=== PATIENT | female | born 1985 | race Two or more races ===

== ENCOUNTER 2021-10-21 08:53 | Inpatient (IN) | payer SELFPAY ==
[~2021-10-21] VITALS: Ht 157.5 cm; Wt 57.2 kg
[2021-10-21] MEDS ORDERED: IV NORMAL SALINE 1000ML BAG 1,000 ML IV SCH (11:00)
[2021-10-21] MEDS ORDERED: FAMOTIDINE 20 MG/2 ML VIAL IVP ONE (11:00)
[2021-10-21] MEDS ORDERED: ONDANSETRON PF 4 MG/2 ML VIAL. IVP ONE (11:00)
[2021-10-21] MEDS ORDERED: fentaNYL PF VIAL 100 MCG/2 ML VIAL IVP ONE (11:00)
--- NOTE | 2021-10-21 11:03 | PHYS DOC ---
General Adult EDM: Chief Complaint: ABDOMINAL PAIN HPI: HPI: Patient is a 36 year old female who presents with 1:00 this morning she been having left-sided sharp/cramping abdominal pain that goes to the left side almost to the flank area at times. She states yesterday morning she had 1 bout of diarrhea but none since. She rates her pain a 10 out of 10. She has a history of RA which she takes prednisone and [id number] Artrivida. She rates her pain at 10 out of 10. She denies vomiting, constipation, chest pain, shortness of air, fever, cough, urinary symptoms, abnormal vaginal discharge, numbness or tingling, headache, dizziness. Review of Systems: Review of Systems: Constitutional: Denies fever or chills. [] Eyes: Denies change in visual acuity. [] HENT: Denies nasal congestion or sore throat. [] Respiratory: Denies cough or shortness of breath. [] Cardiovascular: Denies chest pain or edema. [] GI: + abdominal pain, +nausea, denies vomiting, bloody stools or +diarrhea x1 yesterday. [] : Denies dysuria. [] Musculoskeletal: + left side back pain or denies joint pain. [] Integument: Denies rash. [] Neurologic: Denies headache, focal weakness or sensory changes. [] Endocrine: Denies polyuria or polydipsia. [] Lymphatic: Denies swollen glands. [] Psychiatric: Denies depression or anxiety. [] Heart Score: C/O Chest Pain: No Allergies: Allergies: Allergies Coded Allergies Type Severity Reaction Last Updated Verified No Known Drug Allergies 10/21/21 No Physical Exam: PE: Constitutional: Well developed, well nourished, no acute distress, non-toxic appearance. [] HENT: Normocephalic, atraumatic, bilateral external ears normal, oropharynx moist, no oral exudates, nose normal. [] Eyes: PERRLA, EOMI, conjunctiva normal, no discharge. [] Neck: Normal range of motion, no tenderness, supple, no stridor. [] Cardiovascular:Heart rate regular rhythm, no murmur [] Lungs & Thorax: Bilateral breath sounds clear to auscultation [] Abdomen: Bowel sounds normal, soft, mid lower, left mid and lower tenderness, no masses, no pulsatile masses. [] Skin: Warm, dry, no erythema, no rash. [] Back: No tenderness, no CVA tenderness. [] Extremities: No tenderness, no cyanosis, no clubbing, ROM intact, no edema. [] Neurologic: Alert and oriented X 3, normal motor function, normal sensory function, no focal deficits noted. [] Psychologic: Affect normal, judgement normal, mood normal. [] Current Patient Data: Labs: Laboratory Tests Test 10/21/21 10:37 POC Urine HCG, Qualitative Hcg negative (Negative) EKG: EKG: [] Radiology/Procedures: Radiology/Procedures: [] Impression: [facility] [address] [place] [address] IMAGING REPORT Signed PATIENT: JOE GROSSMAN ACCOUNT: [id number] : 1985 LOCATION: ER AGE: 36 SEX: F EXAM STATUS: REG ER ORD. PHYSICIAN: KATHERINE GODINEZ APRN REASON: left abdominal pain, nausea, left flank PROCEDURE: CT ABD PELV W/ IV CONTRST ONLY EXAMINATION: CT ABDOMEN+PELVIS W CLINICAL HISTORY: Left abdominal pain, nausea, left flank TECHNIQUE: CT of the abdomen and pelvis was performed using standard technique, scanning from just above the dome of the diaphragm to the symphysis pubis following administration of intravenous contrast. CT Dose Reduction Employed: One or more of the following individualized dose reduction techniques were utilized for this examination: 1. Automated exposure control 2. Adjustment of the mA and/or kV according to patient size 3. Use of iterative reconstruction technique. COMPARISON: None FINDINGS: Minimal dependent subsegmental atelectasis in the left lung base. Moderately distended gallbladder with a few small gallstones and rim of hypoattenuation surrounding the gallbladder, suspicious for cholecystitis. Probable focal hepatic steatosis along the falciform ligament. Pancreas, spleen, and adrenal glands unremarkable. Moderate proximal left hydroureteronephrosis, possibly related to a crossing vessel. No urolithiasis. Subcentimeter hypoenhancing focus in the mid to upper pole of left kidney, too small adequately characterize but likely a cyst. Right kidney unremarkable. Minimally filled urinary bladder suboptimally evaluated. Uterus unremarkable. Dominant right ovarian follicle. Left ovary unremarkable. No bowel dilation or definite wall thickening. Partially visualized appendix appears normal. No abdominal aortic or iliac artery aneurysm. Transitional lumbosacral vertebra with sacralization of L5. IMPRESSION: Moderately distended gallbladder with cholelithiasis and suspected pericholecystic edema, suspicious for cholecystitis. Recommend clinical correlation and right upper quadrant ultrasound as indicated. Moderate proximal left hydroureteronephrosis, possibly related to a crossing vessel. No urolithiasis. Electronically signed by: Héctor Serna DO (10/21/2021 12:23 PM) [facility] DICTATED and SIGNED BY: HÉCTOR SERNA DO DATE: 10/21/[id number] [facility] [address] [place] [address] IMAGING REPORT Signed PATIENT: JOE GROSSMAN ACCOUNT: [id number] : 1985 LOCATION: ER AGE: 36 SEX: F EXAM STATUS: REG ER ORD. PHYSICIAN: KATHERINE GODINEZ APRN REASON: GALL BLADDER ABNORMAL ON CT - TECH NOTIFIED PROCEDURE: ABDOMEN LTD EXAMINATION: US ABDOMEN LIMITED INDICATION: 36 years, Female, gallbladder abnormal with CT. COMPARISON: Same day CT abdomen and pelvis TECHNIQUE: Grayscale, color Doppler and limited spectral Doppler images of the right upper quadrant were obtained. FINDINGS: LIVER: SIZE (LENGTH): 12.6 cm. ECHOGENICITY: Normal. PARENCHYMA: Homogeneous echotexture. No discrete focal lesion. INTRAHEPATIC BILE DUCTS: Nondilated. PORTAL VEIN: Patent with normal hepatopedal flow. GALLBLADDER: GALLBLADDER WALL THICKNESS: 5.4 mm. MORPHOLOGY: Mild gallbladder hydrops. No pericholecystic free fluid. LUMEN: Multiple cholelithiasis with biliary sludge; one of them locates in the gallbladder neck measures 1.6 cm. COMMON BILE DUCT DIAMETER: 1.8 mm. RIGHT KIDNEY: MEASURES: 11.6 cm in length. MORPHOLOGY/PARENCHYMA: Normal corticomedullary differentiation with no shadowing calculus or discrete masses. COLLECTING SYSTEM: No hydronephrosis. PANCREAS: VISUALIZED PORTIONS: Entire. APPEARANCE: Within normal limits. OTHER: RETROPERITONEUM, INFERIOR VENA CAVA: Normal caliber. AORTA: Normal caliber. FLUID:No free fluid. IMPRESSION: Mild gallbladder hydrops with diffuse wall thickening and submucosal edema. Cholelithiases with biliary sludge; one of them locates within the gallbladder neck. Findings suspicious for acute cholecystitis. Electronically signed by: Aylin Shah MD (10/21/2021 3:02 PM) [id number] DICTATED and SIGNED BY: AYLIN SHAH MD DATE: 10/21/21 [id number] Course & Med Decision Making: Course & Med Decision Making Pertinent Labs and Imaging studies reviewed. (See chart for details) See HPI. Alert and oriented x4. Ambulatory steady gait. Speaks in full clear sentences. Abdomen is soft but there is left mid, lower quadrant and mid lower quadrant abdominal tenderness. Skin pink warm and dry. No CVA tenderness. Vital signs are within normal limits. CT is showing cholecystitis. I have ordered an ultrasound. I spoke with Dr. Holley who states to hydrate the patient today and give her Zosyn. He states surgery tomorrow. Patient admitted to hospitalist. [] Mira Disclaimer: Mira Disclaimer: This electronic medical record was generated, in whole or in part, using a voice recognition dictation system. Departure Departure Impression: Primary Impression: Cholecystitis Disposition: ADMITTED INPATIENT Admitting Physician: ROB Condition: STABLE Referrals: NO PCP (PCP) KATHERINE GODINEZ APRN Oct 21, 2021 11:03
[2021-10-21 11:17] LABS: BILIRUBIN,URINE NEGATIVE (NEG); CLARITY,URINE CLEAR; COLOR,URINE YELLOW; NITRITE,URINE NEGATIVE (NEG); PH,URINE 7.5 (<5.0-8.0); PROTEIN,URINE NEGATIVE (NEG-TRACE); UROBILINOGEN,URINE 0.2 mg/dL (0.2 mg/dL)
[2021-10-21 11:19] LABS: BASO % 0 % (0-3); EOS % 0 % (0-3); HEMATOCRIT 37.1 % (36.0-47.0); HEMOGLOBIN 11.9 g/dL (12.0-15.5); LYMPH % 10 % (24-48); MEAN CORPUSCULAR HEMOGLOBIN 27 pg (25-35); MEAN CORPUSCULAR HGB CONC 32 g/dL (31-37); MEAN CORPUSCULAR VOLUME 84 fL (79-100); MONO # 0.4 x10^3/uL (0.0-1.1); MONO % 4 % (0-9); NEUT # 8.8 x10^3/uL (1.8-7.7); NEUT % 86 % (31-73); PLATELET COUNT 300 x10^3/uL (140-400); RED BLOOD COUNT 4.43 x10^6/uL (3.50-5.40); RED CELL DISTRIBUTION WIDTH 14.8 % (11.5-14.5); WHITE BLOOD COUNT 10.2 x10^3/uL (4.0-11.0)
[2021-10-21 11:24] LABS: AMPHETAMINE/METHAMPHETAMINE NEG (NEG); BARBITURATES NEG (NEG); BENZODIAZEPINES NEG (NEG); CANNABINOIDS POS (NEG); COCAINE NEG (NEG); METHADONE NEG (NEG); OPIATES NEG (NEG); PHENCYCLIDINE NEG (NEG)
[2021-10-21 11:32] LABS: CALCIUM 8.7 mg/dL (8.5-10.1); CREATININE 0.5 mg/dL (0.6-1.0); GFR 139.6; POTASSIUM 3.8 mmol/L (3.5-5.1)
[2021-10-21 11:34] LABS: ALBUMIN 3.1 g/dL (3.4-5.0); ALBUMIN/GLOBULIN RATIO 0.7 (1.0-1.7); TOTAL BILIRUBIN 0.4 mg/dL (0.2-1.0); TOTAL PROTEIN 7.3 g/dL (6.4-8.2)
[2021-10-21] MEDS ORDERED: IOHEXOL 300 MG/ML 100ML VIAL. IV ONE (12:00)
[2021-10-21] MEDS ORDERED: CONTRAST GIVEN. MC PRN (12:00)
[2021-10-21 12:09] LABS: BACTERIA,URINE 0 /HPF (0-FEW); RBC,URINE 0 /HPF (0-2); WBC,URINE 0 /HPF (0-4)
--- NOTE | 2021-10-21 12:25 | RAD ---
EXAMINATION: CT ABDOMEN+PELVIS W CLINICAL HISTORY: Left abdominal pain, nausea, left flank TECHNIQUE: CT of the abdomen and pelvis was performed using standard technique, scanning from just ab ove the dome of the diaphragm to the symphysis pubis following administration of intravenous contrast . CT Dose Reduction Employed: One or more of the following individualized dose reduction techniques wer e utilized for this examination: 1. Automated exposure control 2. Adjustment of the mA and/or kV ac cording to patient size 3. Use of iterative reconstruction technique. COMPARISON: None FINDINGS: Minimal dependent subsegmental atelectasis in the left lung base. Moderately distended gallbladder with a few small gallstones and rim of hypoattenuation surrounding t he gallbladder, suspicious for cholecystitis. Probable focal hepatic steatosis along the falciform li gament. Pancreas, spleen, and adrenal glands unremarkable. Moderate proximal left hydroureteronephrosis, possibly related to a crossing vessel. No urolithiasis. Subcentimeter hypoenhancing focus in the mid to upper pole of left kidney, too small adequately cristine acterize but likely a cyst. Right kidney unremarkable. Minimally filled urinary bladder suboptimally evaluated. Uterus unremarkable. Dominant right ovarian follicle. Left ovary unremarkable. No bowel dilation or definite wall thickening. Partially visualized appendix appears normal. No abdominal aortic or iliac artery aneurysm. Transitional lumbosacral vertebra with sacralization of L5. IMPRESSION: Moderately distended gallbladder with cholelithiasis and suspected pericholecystic edema, suspicious for cholecystitis. Recommend clinical correlation and right upper quadrant ultrasound as indicated. Moderate proximal left hydroureteronephrosis, possibly related to a crossing vessel. No urolithiasis. Electronically signed by: Héctor Thomas DO (10/21/2021 12:23 PM) SHAUN
[2021-10-21] MEDS ORDERED: IV NORMAL SALINE 1000ML BAG 1,000 ML IV ONE (13:30)
[2021-10-21] MEDS ORDERED: PIPERACILLIN/TAZOBACTAM 3.375 GM in IV NORMAL SALINE 50ML 50 ML IV ONE (13:30)
[2021-10-21] MEDS ORDERED: ONDANSETRON PF 4 MG/2 ML VIAL. IVP PRN (13:30)
[2021-10-21] MEDS: IV NORMAL SALINE 1000ML BAG 1,000 ML IV SCH (13:30)
[2021-10-21] MEDS ORDERED: CALCIUM CARBONATE 500 MG TAB.CHEW PO PRN (13:45)
[2021-10-21] MEDS ORDERED: MORPHINE SULFATE 2 MG/ML INJ. IV PRN ×2 (13:45)
[2021-10-21] MEDS ORDERED: PROCHLORPERAZINE 10 MG/2 ML VIAL. IVP PRN (13:45)
[2021-10-21] MEDS ORDERED: oxyCODONE IR 5 MG TABLET PO PRN (13:45)
[2021-10-21] MEDS ORDERED: ZOLPIDEM 5 MG TABLET. PO PRN (13:45)
[2021-10-21] MEDS ORDERED: ELECTROLYTE (NON-ICU) PROTOCOL. MC PRN (13:45)
[2021-10-21] MEDS ORDERED: ACETAMINOPHEN 325 MG TABLET. PO PRN (13:45)
--- NOTE | 2021-10-21 14:11 | PDOC1 ---
History and Physical Date of Service: DOS: DATE: 10/21/21 TIME: 14:07 Chief Complaint: Chief Complain: Abdominal pain History of Present Illness: HPI: Patient is a 36 year old female who presented to the emergency room this morning due to right-sided sharp/cramping abdominal pain which radiaties to the flank area at times. She states yesterday morning she had 1 bout of diarrhea but none since. She rates her pain a 10 out of 10. She has a history of RA which she takes prednisone and [id number] Artrivida. She rates her pain at 10 out of 10. She denies vomiting, constipation, chest pain, shortness of air, fever, cough, urinary symptoms, abnormal vaginal discharge, numbness or tingling, headache, dizziness. In the emergency room CT concerning for cholecystitis. Surgery consulted patient admitted to hospitalist Past Medical/Surgical History: PMH/PSH: RA Allergies: Allergies: Coded Allergies: No Known Drug Allergies (Unverified , 10/21/21) Family History: Family History: Reviewed with patient none known Social History: Social History: Denies alcohol tobacco drug use Current Medications: Current Medications Current Medications Sodium Chloride 1,000 ml @ 1,000 mls/hr Q1H IV Last administered on 10/21/21at 11:49; Start 10/21/21 at 11:00; Stop 10/21/21 at 11:59; Status DC Fentanyl Citrate (Fentanyl 2ml Vial) 50 mcg 1X ONCE IVP Last administered on 10/21/21at 11:50; Start 10/21/21 at 11:00; Stop 10/21/21 at 11:01; Status DC Ondansetron HCl (Zofran) 4 mg 1X ONCE IVP Last administered on 10/21/21at 11:49; Start 10/21/21 at 11:00; Stop 10/21/21 at 11:01; Status DC Famotidine (Pepcid Vial) 20 mg 1X ONCE IVP Last administered on 10/21/21at 11:49; Start 10/21/21 at 11:00; Stop 10/21/21 at 11:01; Status DC Iohexol (Omnipaque 300 Mg/ml) 75 ml 1X ONCE IV Last administered on 10/21/21at 12:04; Start 10/21/21 at 12:00; Stop 10/21/21 at 12:01; Status DC Info (CONTRAST GIVEN -- Rx MONITORING) 1 each PRN DAILY PRN MC SEE COMMENTS; Start 10/21/21 at 12:00; Stop 10/23/21 at 11:59 Piperacillin Sod/ Tazobactam Sod 3.375 gm/Sodium Chloride 50 ml @ 100 mls/hr 1X ONCE IV ; Start 10/21/21 at 13:30; Stop 10/21/21 at 13:59; Status DC Sodium Chloride 1,000 ml @ 1,000 mls/hr 1X ONCE IV ; Start 10/21/21 at 13:30; Stop 10/21/21 at 14:29 Ondansetron HCl (Zofran) 4 mg PRN Q8HRS PRN IVP NAUSEA/VOMITING; Start 10/21/21 at 13:30; Stop 10/22/21 at 13:29 Sodium Chloride 1,000 ml @ 75 mls/hr [id number] IV ; Start 10/21/21 at 13:30; Stop 10/22/21 at 13:29 Ondansetron HCl (Zofran) 4 mg PRN Q6HRS PRN IVP NAUSEA/VOMITING; Start 10/21/21 at 13:45 Prochlorperazine Edisylate (Compazine) 10 mg PRN Q6HRS PRN IVP NAUSEA/VOMITING- 2ND CHOICE; Start 10/21/21 at 13:45 Calcium Carbonate/ Glycine (Tums) 500 mg PRN Q3HRS PRN PO UPSET STOMACH; Start 10/21/21 at 13:45 Zolpidem Tartrate (Ambien) 5 mg PRN QHS PRN PO INSOMNIA, MAY REPEAT IN 1HR; Start 10/21/21 at 13:45 Info (Non-Icu Electrolyte Protocol) 1 ea PRN DAILY PRN MC SEE COMMENTS; Start 10/21/21 at 13:45 Oxycodone HCl (Roxicodone) 5 mg PRN Q3HRS PRN PO PAIN; Start 10/21/21 at 13:45 Morphine Sulfate (Morphine Sulfate) 1 mg PRN Q1HR PRN IV MODERATE PAIN; Start 10/21/21 at 13:45 Morphine Sulfate (Morphine Sulfate) 2 mg PRN Q1HR PRN IV SEVERE PAIN; Start 10/21/21 at 13:45 Acetaminophen (Tylenol) 650 mg PRN Q6HRS PRN PO Headaches, Temp > 101.5F; Start 10/21/21 at 13:45 Senna/Docusate Sodium (Senna Plus) 1 tab BID PO ; Start 10/21/21 at 21:00 ROS: Review of Systems Review of System Unless noted in HPI 14 point review systems was negative Physical Exam: Vital Signs: Vital Signs Date Time Temp Pulse Resp B/P (MAP) Pulse Ox O2 Delivery O2 Flow Rate FiO2 10/21/21 11:50 17 100 Room Air 10/21/21 10:30 98.0 53 149/99 (116) 98.0 Physcial Exam: GEN: No apparent distress. Alert and oriented HEENT: Normal cephalic, atraumatic, external auditory canals are patent EYES: Extraocular muscles are intact, pupil are equally round and reactive to light and accommodation MUSCULOSKELETAL: Well developed , well nourished, good range of motion ENDOCRINE: No thyromegaly was palpated LYMPHATICS: No cervical chain or axillary nodes were noted HEMATOPOIETIC: No bruising NECK: Supple, no JVD, no thyromegaly was noted LUNGS: Clear to auscultation in all lung temple without rhonchi or wheezing HEART: RRR, S1, S2 present. Peripheral pulses intact, no obvious murmurs noted ABDOMEN: Diffusely tender with mild palpation s EXTREMITIES: Without clubbing, cyanosis, or edema. Pedal pulses intact. Negative Homans sign NEUROLOGIC: Normal speech and tone. A&O x 3, moves all extremities, no obvious focal deficits PSYCHIATRIC: Normal affect, normal mood. Stable SKIN: No ulcerations or rashes, good skin turgor, no jaundice VASCULAR: Good capillary refill, neurovascular bundle appears to be intact Labs: Labs: Laboratory Tests Test 10/21/21 10:33 10/21/21 10:37 10/21/21 11:09 Urine Collection Type Unknown Urine Color Yellow Urine Clarity Clear Urine pH 7.5 (<5.0-8.0) Urine Specific [place] 1.020 (1.000-1.030) Urine Protein Negative mg/dL (NEG-TRACE) Urine Glucose (UA) Negative mg/dL (NEG) Urine Ketones (Stick) 40 mg/dL (NEG) Urine Blood Negative (NEG) Urine Nitrite Negative (NEG) Urine Bilirubin Negative (NEG) Urine Urobilinogen Dipstick 0.2 mg/dL (0.2 mg/dL) Urine Leukocyte Esterase Negative (NEG) Urine RBC 0 /HPF (0-2) Urine WBC 0 /HPF (0-4) Urine Squamous Epithelial Cells Occ /LPF Urine Bacteria 0 /HPF (0-FEW) Urine Opiates Screen Neg (NEG) Urine Methadone Screen Neg (NEG) Urine Barbiturates Neg (NEG) Urine Phencyclidine Screen Neg (NEG) Urine Amphetamine/Methamphetamine Neg (NEG) Urine Benzodiazepines Screen Neg (NEG) Urine Cocaine Screen Neg (NEG) Urine Cannabinoids Screen Pos (NEG) Urine Ethyl Alcohol Neg (NEG) Bedside Urine HCG, Qualitative Hcg negative (Negative) White Blood Count 10.2 x10^3/uL (4.0-11.0) Red Blood Count 4.43 x10^6/uL (3.50-5.40) Hemoglobin 11.9 g/dL (12.0-15.5) Hematocrit 37.1 % (36.0-47.0) Mean Corpuscular Volume 84 fL (79-100) Mean Corpuscular Hemoglobin 27 pg (25-35) Mean Corpuscular Hemoglobin Concent 32 g/dL (31-37) Red Cell Distribution Width 14.8 % (11.5-14.5) Platelet Count 300 x10^3/uL (140-400) Neutrophils (%) (Auto) 86 % (31-73) Lymphocytes (%) (Auto) 10 % (24-48) Monocytes (%) (Auto) 4 % (0-9) Eosinophils (%) (Auto) 0 % (0-3) Basophils (%) (Auto) 0 % (0-3) Neutrophils # (Auto) 8.8 x10^3/uL (1.8-7.7) Lymphocytes # (Auto) 1.0 x10^3/uL (1.0-4.8) Monocytes # (Auto) 0.4 x10^3/uL (0.0-1.1) Eosinophils # (Auto) 0.0 x10^3/uL (0.0-0.7) Basophils # (Auto) 0.0 x10^3/uL (0.0-0.2) Sodium Level 137 mmol/L (136-145) Potassium Level 3.8 mmol/L (3.5-5.1) Chloride Level 102 mmol/L (98-107) Carbon Dioxide Level 26 mmol/L (21-32) Anion Gap 9 (6-14) Blood Urea Nitrogen 23 mg/dL (7-20) Creatinine 0.5 mg/dL (0.6-1.0) Estimated GFR (Cockcroft-Gault) 139.6 BUN/Creatinine Ratio 46 (6-20) Glucose Level 119 mg/dL (70-99) Calcium Level 8.7 mg/dL (8.5-10.1) Total Bilirubin 0.4 mg/dL (0.2-1.0) Aspartate Amino Transf (AST/SGOT) 36 U/L (15-37) Alanine Aminotransferase (ALT/SGPT) 46 U/L (14-59) Alkaline Phosphatase 81 U/L (46-116) Total Protein 7.3 g/dL (6.4-8.2) Albumin 3.1 g/dL (3.4-5.0) Albumin/Globulin Ratio 0.7 (1.0-1.7) Lipase 93 U/L (73-393) Laboratory Tests Test 10/21/21 10:33 10/21/21 10:37 10/21/21 11:09 Urine Collection Type Unknown Urine Color Yellow Urine Clarity Clear Urine pH 7.5 (<5.0-8.0) Urine Specific [place] 1.020 (1.000-1.030) Urine Protein Negative mg/dL (NEG-TRACE) Urine Glucose (UA) Negative mg/dL (NEG) Urine Ketones (Stick) 40 mg/dL (NEG) Urine Blood Negative (NEG) Urine Nitrite Negative (NEG) Urine Bilirubin Negative (NEG) Urine Urobilinogen Dipstick 0.2 mg/dL (0.2 mg/dL) Urine Leukocyte Esterase Negative (NEG) Urine RBC 0 /HPF (0-2) Urine WBC 0 /HPF (0-4) Urine Squamous Epithelial Cells Occ /LPF Urine Bacteria 0 /HPF (0-FEW) Urine Opiates Screen Neg (NEG) Urine Methadone Screen Neg (NEG) Urine Barbiturates Neg (NEG) Urine Phencyclidine Screen Neg (NEG) Urine Amphetamine/Methamphetamine Neg (NEG) Urine Benzodiazepines Screen Neg (NEG) Urine Cocaine Screen Neg (NEG) Urine Cannabinoids Screen Pos (NEG) Urine Ethyl Alcohol Neg (NEG) Bedside Urine HCG, Qualitative Hcg negative (Negative) White Blood Count 10.2 x10^3/uL (4.0-11.0) Red Blood Count 4.43 x10^6/uL (3.50-5.40) Hemoglobin 11.9 g/dL (12.0-15.5) Hematocrit 37.1 % (36.0-47.0) Mean Corpuscular Volume 84 fL (79-100) Mean Corpuscular Hemoglobin 27 pg (25-35) Mean Corpuscular Hemoglobin Concent 32 g/dL (31-37) Red Cell Distribution Width 14.8 % (11.5-14.5) Platelet Count 300 x10^3/uL (140-400) Neutrophils (%) (Auto) 86 % (31-73) Lymphocytes (%) (Auto) 10 % (24-48) Monocytes (%) (Auto) 4 % (0-9) Eosinophils (%) (Auto) 0 % (0-3) Basophils (%) (Auto) 0 % (0-3) Neutrophils # (Auto) 8.8 x10^3/uL (1.8-7.7) Lymphocytes # (Auto) 1.0 x10^3/uL (1.0-4.8) Monocytes # (Auto) 0.4 x10^3/uL (0.0-1.1) Eosinophils # (Auto) 0.0 x10^3/uL (0.0-0.7) Basophils # (Auto) 0.0 x10^3/uL (0.0-0.2) Sodium Level 137 mmol/L (136-145) Potassium Level 3.8 mmol/L (3.5-5.1) Chloride Level 102 mmol/L (98-107) Carbon Dioxide Level 26 mmol/L (21-32) Anion Gap 9 (6-14) Blood Urea Nitrogen 23 mg/dL (7-20) Creatinine 0.5 mg/dL (0.6-1.0) Estimated GFR (Cockcroft-Gault) 139.6 BUN/Creatinine Ratio 46 (6-20) Glucose Level 119 mg/dL (70-99) Calcium Level 8.7 mg/dL (8.5-10.1) Total Bilirubin 0.4 mg/dL (0.2-1.0) Aspartate Amino Transf (AST/SGOT) 36 U/L (15-37) Alanine Aminotransferase (ALT/SGPT) 46 U/L (14-59) Alkaline Phosphatase 81 U/L (46-116) Total Protein 7.3 g/dL (6.4-8.2) Albumin 3.1 g/dL (3.4-5.0) Albumin/Globulin Ratio 0.7 (1.0-1.7) Lipase 93 U/L (73-393) Assessment/Plan Assessment/Plan Acute cholecystitis. History of RA -Patient with 1 day history abdominal pain -Presented to emergency room and have cholecystitis on imaging -Surgery consulted for possible surgery tomorrow. -Received 1 dose of Zosyn in the emergency room. No leukocytosis or fever will hold off unless surgery prefers to restart -Hold off DVT prophylaxis in event of surgery tomorrow -N.p.o. midnight -Home meds resumed as indicated Justifications for Admission Other Justification BOO DORSEY MD Oct 21, 2021 14:11
--- NOTE | 2021-10-21 15:04 | RAD ---
EXAMINATION: US ABDOMEN LIMITED INDICATION: 36 years, Female, gallbladder abnormal with CT. COMPARISON: Same day CT abdomen and pelvis TECHNIQUE: Grayscale, color Doppler and limited spectral Doppler images of the right upper quadrant w ere obtained. FINDINGS: LIVER: SIZE (LENGTH): 12.6 cm. ECHOGENICITY: Normal. PARENCHYMA: Homogeneous echotexture. No discrete focal lesion. INTRAHEPATIC BILE DUCTS: Nondilated. PORTAL VEIN: Patent with normal hepatopedal flow. GALLBLADDER: GALLBLADDER WALL THICKNESS: 5.4 mm. MORPHOLOGY: Mild gallbladder hydrops. No pericholecystic free fluid. LUMEN: Multiple cholelithiasis with biliary sludge; one of them locates in the gallbladder neck measu res 1.6 cm. COMMON BILE DUCT DIAMETER: 1.8 mm. RIGHT KIDNEY: MEASURES: 11.6 cm in length. MORPHOLOGY/PARENCHYMA: Normal corticomedullary differentiation with no shadowing calculus or discrete masses. COLLECTING SYSTEM: No hydronephrosis. PANCREAS: VISUALIZED PORTIONS: Entire. APPEARANCE: Within normal limits. OTHER: RETROPERITONEUM, INFERIOR VENA CAVA: Normal caliber. AORTA: Normal caliber. FLUID:No free fluid. IMPRESSION: Mild gallbladder hydrops with diffuse wall thickening and submucosal edema. Cholelithiases with bilia ry sludge; one of them locates within the gallbladder neck. Findings suspicious for acute cholecystit is. Electronically signed by: Nathaly Shah MD (10/21/2021 3:02 PM) [place] [id number]
[2021-10-21 16:54] VITALS: BP 131/72
--- NOTE | 2021-10-21 18:14 | NUR ---
Pt arrived to floor at 1530 by w/c with by her side
[2021-10-21 19:00] VITALS: BP 137/79
[2021-10-21] MEDS: SENNOSIDES/DOCUSATE 8.6/50MG TABLET. PO SCH (21:29)
[2021-10-21 23:00] VITALS: BP 120/72
[2021-10-22] VITALS (12 sets, daily range): BP systolic 104–121; BP diastolic 51–76
[2021-10-22] MEDS: IV NORMAL SALINE 1000ML BAG 1,000 ML IV SCH (05:41)
[2021-10-22] MEDS: ONDANSETRON PF 4 MG/2 ML VIAL. IVP PRN ×2 (08:37→17:38)
[2021-10-22] MEDS: SENNOSIDES/DOCUSATE 8.6/50MG TABLET. PO SCH ×2 (08:41→20:46)
--- NOTE | 2021-10-22 10:20 | NUR ---
SW following. Discussed with RN, pt from home with family, room air, NPO, ad yobany. Pt having surgery today. Med Assist following for self pay status. SW will continue to follow.
[2021-10-22] MEDS ORDERED: SURGICEL HEMOSTAT 4X8 EACH. ONE (10:21)
[2021-10-22] MEDS ORDERED: IOHEXOL 300 MG/ML 50 ML VIAL. ONE (10:21)
[2021-10-22] MEDS ORDERED: BUPIVACAINE-EPI 0.5% 30 ML VIAL KIT. ONE (10:21)
--- NOTE | 2021-10-22 10:40 | PDOC ---
[facility] PROGRESS NOTE Date of Service DOS: DATE: 10/22/21 TIME: 10:39 Chief Complaint Chief Complaint Acute cholecystitis. History of RA -Patient with 1 day history abdominal pain -Presented to emergency room and have cholecystitis on imaging -Surgery consulted for possible surgery tomorrow. -Received 1 dose of Zosyn in the emergency room. No leukocytosis or fever will hold off unless surgery prefers to restart -Hold off DVT prophylaxis in event of surgery tomorrow -N.p.o. midnight -Home meds resumed as indicated History of Present Illness History of Present Illness 36 year old female who presented to the emergency room this morning due to right-sided sharp/cramping abdominal pain which radiaties to the flank area at times. She states yesterday morning she had 1 bout of diarrhea but none since. She rates her pain a 10 out of 10. She has a history of RA which she takes prednisone and kgqj-kpv-szobzlo Artrivida. She rates her pain at 10 out of 10. She denies vomiting, constipation, chest pain, shortness of air, fever, cough, urinary symptoms, abnormal vaginal discharge, numbness or tingling, headache, dizziness. In the emergency room CT concerning for cholecystitis. Surgery consulted patient admitted to hospitalist 10/22/2021 No acute events overnight. Patient seen and examined bedside. Pain is well controlled. On-call to the OR for lap serina. Patient's chart, labs, images were reviewed and discussed with RN Vitals/I&O Vitals/I&O: Vital Signs Date Time Temp Pulse Resp B/P (MAP) Pulse Ox O2 Delivery O2 Flow Rate FiO2 10/22/21 07:00 98.0 53 16 104/55 (71) 97 Room Air 98.0 I & O 10/21/21 10/21/21 10/22/21 15:00 23:00 07:00 Intake Total 1000 ml 1170 ml Balance 1000 ml 1170 ml Physical Exam General: Alert, Oriented X3, Cooperative Heart: Regular rate Lungs: Clear Abdomen: Normal bowel sounds Extremities: No clubbing Skin: No rashes, No significant lesion Labs Labs: Laboratory Tests Test 10/21/21 11:09 White Blood Count 10.2 x10^3/uL (4.0-11.0) Red Blood Count 4.43 x10^6/uL (3.50-5.40) Hemoglobin 11.9 g/dL (12.0-15.5) Hematocrit 37.1 % (36.0-47.0) Mean Corpuscular Volume 84 fL (79-100) Mean Corpuscular Hemoglobin 27 pg (25-35) Mean Corpuscular Hemoglobin Concent 32 g/dL (31-37) Red Cell Distribution Width 14.8 % (11.5-14.5) Platelet Count 300 x10^3/uL (140-400) Neutrophils (%) (Auto) 86 % (31-73) Lymphocytes (%) (Auto) 10 % (24-48) Monocytes (%) (Auto) 4 % (0-9) Eosinophils (%) (Auto) 0 % (0-3) Basophils (%) (Auto) 0 % (0-3) Neutrophils # (Auto) 8.8 x10^3/uL (1.8-7.7) Lymphocytes # (Auto) 1.0 x10^3/uL (1.0-4.8) Monocytes # (Auto) 0.4 x10^3/uL (0.0-1.1) Eosinophils # (Auto) 0.0 x10^3/uL (0.0-0.7) Basophils # (Auto) 0.0 x10^3/uL (0.0-0.2) Sodium Level 137 mmol/L (136-145) Potassium Level 3.8 mmol/L (3.5-5.1) Chloride Level 102 mmol/L (98-107) Carbon Dioxide Level 26 mmol/L (21-32) Anion Gap 9 (6-14) Blood Urea Nitrogen 23 mg/dL (7-20) Creatinine 0.5 mg/dL (0.6-1.0) Estimated GFR (Cockcroft-Gault) 139.6 BUN/Creatinine Ratio 46 (6-20) Glucose Level 119 mg/dL (70-99) Calcium Level 8.7 mg/dL (8.5-10.1) Total Bilirubin 0.4 mg/dL (0.2-1.0) Aspartate Amino Transf (AST/SGOT) 36 U/L (15-37) Alanine Aminotransferase (ALT/SGPT) 46 U/L (14-59) Alkaline Phosphatase 81 U/L (46-116) Total Protein 7.3 g/dL (6.4-8.2) Albumin 3.1 g/dL (3.4-5.0) Albumin/Globulin Ratio 0.7 (1.0-1.7) Lipase 93 U/L (73-393) Assessment and Plan Assessmemt and Plan Problems Medical Problems: (1) Cholecystitis Status: Acute Comment Review of Relevant I have reviewed the following items sathish (where applicable) has been applied. Medications: Current Medications Medications (Trade) Dose Ordered Sig/Diego Route PRN Reason Start Time Stop Time Status Last Admin Dose Admin Sodium Chloride 1,000 ml @ 1,000 mls/hr Q1H IV 10/21/21 11:00 10/21/21 11:59 DC 10/21/21 11:49 Fentanyl Citrate (Fentanyl 2ml Vial) 50 mcg 1X ONCE IVP 10/21/21 11:00 10/21/21 11:01 DC 10/21/21 11:50 Ondansetron HCl (Zofran) 4 mg 1X ONCE IVP 10/21/21 11:00 10/21/21 11:01 DC 10/21/21 11:49 Famotidine (Pepcid Vial) 20 mg 1X ONCE IVP 10/21/21 11:00 10/21/21 11:01 DC 10/21/21 11:49 Iohexol (Omnipaque 300 Mg/ml) 75 ml 1X ONCE IV 10/21/21 12:00 10/21/21 12:01 DC 10/21/21 12:04 Piperacillin Sod/ Tazobactam Sod 3.375 gm/Sodium Chloride 50 ml @ 100 mls/hr 1X ONCE IV 10/21/21 13:30 10/21/21 13:59 DC 10/21/21 14:07 Sodium Chloride 1,000 ml @ 1,000 mls/hr 1X ONCE IV 10/21/21 13:30 10/21/21 14:33 DC 10/21/21 14:06 Sodium Chloride 1,000 ml @ 75 mls/hr [id number] IV 10/21/21 13:30 10/22/21 13:29 10/22/21 05:41 Ondansetron HCl (Zofran) 4 mg PRN Q6HRS PRN IVP NAUSEA/VOMITING 10/21/21 13:45 10/22/21 08:37 Morphine Sulfate (Morphine Sulfate) 2 mg PRN Q1HR PRN IV SEVERE PAIN 10/21/21 13:45 10/22/21 05:19 Senna/Docusate Sodium (Senna Plus) 1 tab BID PO 10/21/21 21:00 10/21/21 21:29 Justifications for Admission Other Justification CHAPITO BECKFORD MD Oct 22, 2021 10:40
--- NOTE | 2021-10-22 11:23 | PDOC2 ---
CONSULT Date of Consult Date of Consult DATE: 10/22/21 TIME: 11:19 Reason for Consult Reason for Consult: cholecystitis Referring Physician Referring Physician: ER Identification/Chief Complaint Chief Complaint abdominal pain Source Source: Chart review, Patient History of Present Illness Reason for Visit: Reports acute onset of LUQ pain, radiates to back. Associated nausea. No similar symptoms in past. Did have 1 episode of loose stool. Currently pain improved, however headache Past Medical History Past Medical History RA Past Surgical History Past Surgical History: No pertinent history Family History Family History: Other (noncontributory to current illness ) Social History <1 pack per day ALCOHOL: rare Drugs: Marijuana Lives: with Family Current Problem List Problem List Problems Medical Problems: (1) Cholecystitis Status: Acute Current Medications Current Medications Current Medications Sodium Chloride 1,000 ml @ 1,000 mls/hr Q1H IV Last administered on 10/21/21at 11:49; Start 10/21/21 at 11:00; Stop 10/21/21 at 11:59; Status DC Fentanyl Citrate (Fentanyl 2ml Vial) 50 mcg 1X ONCE IVP Last administered on 10/21/21at 11:50; Start 10/21/21 at 11:00; Stop 10/21/21 at 11:01; Status DC Ondansetron HCl (Zofran) 4 mg 1X ONCE IVP Last administered on 10/21/21at 11:49; Start 10/21/21 at 11:00; Stop 10/21/21 at 11:01; Status DC Famotidine (Pepcid Vial) 20 mg 1X ONCE IVP Last administered on 10/21/21at 11:49; Start 10/21/21 at 11:00; Stop 10/21/21 at 11:01; Status DC Iohexol (Omnipaque 300 Mg/ml) 75 ml 1X ONCE IV Last administered on 10/21/21at 12:04; Start 10/21/21 at 12:00; Stop 10/21/21 at 12:01; Status DC Info (CONTRAST GIVEN -- Rx MONITORING) 1 each PRN DAILY PRN MC SEE COMMENTS; Start 10/21/21 at 12:00; Stop 10/23/21 at 11:59 Piperacillin Sod/ Tazobactam Sod 3.375 gm/Sodium Chloride 50 ml @ 100 mls/hr 1X ONCE IV Last administered on 10/21/21at 14:07; Start 10/21/21 at 13:30; Stop 10/21/21 at 13:59; Status DC Sodium Chloride 1,000 ml @ 1,000 mls/hr 1X ONCE IV Last administered on 10/21/21at 14:06; Start 10/21/21 at 13:30; Stop 10/21/21 at 14:33; Status DC Ondansetron HCl (Zofran) 4 mg PRN Q8HRS PRN IVP NAUSEA/VOMITING; Start 10/21/21 at 13:30; Stop 10/22/21 at 13:29 Sodium Chloride 1,000 ml @ 75 mls/hr [id number] IV Last administered on 10/22/21at 05:41; Start 10/21/21 at 13:30; Stop 10/22/21 at 13:29 Ondansetron HCl (Zofran) 4 mg PRN Q6HRS PRN IVP NAUSEA/VOMITING Last administered on 10/22/21at 08:37; Start 10/21/21 at 13:45 Prochlorperazine Edisylate (Compazine) 10 mg PRN Q6HRS PRN IVP NAUSEA/VOMITING- 2ND CHOICE; Start 10/21/21 at 13:45 Calcium Carbonate/ Glycine (Tums) 500 mg PRN Q3HRS PRN PO UPSET STOMACH; Start 10/21/21 at 13:45 Zolpidem Tartrate (Ambien) 5 mg PRN QHS PRN PO INSOMNIA, MAY REPEAT IN 1HR; Start 10/21/21 at 13:45 Info (Non-Icu Electrolyte Protocol) 1 ea PRN DAILY PRN MC SEE COMMENTS; Start 10/21/21 at 13:45 Oxycodone HCl (Roxicodone) 5 mg PRN Q3HRS PRN PO PAIN; Start 10/21/21 at 13:45 Morphine Sulfate (Morphine Sulfate) 1 mg PRN Q1HR PRN IV MODERATE PAIN; Start 10/21/21 at 13:45 Morphine Sulfate (Morphine Sulfate) 2 mg PRN Q1HR PRN IV SEVERE PAIN Last administered on 10/22/21at 05:19; Start 10/21/21 at 13:45 Acetaminophen (Tylenol) 650 mg PRN Q6HRS PRN PO Headaches, Temp > 101.5F; Start 10/21/21 at 13:45 Senna/Docusate Sodium (Senna Plus) 1 tab BID PO Last administered on 10/21/21at 21:29; Start 10/21/21 at 21:00 Bupivacaine HCl/ Epinephrine Bitart (Sensorcain-Epi 0.5% Kit) 30 ml STK-MED ONCE .ROUTE ; Start 10/22/21 at 10:21; Stop 10/22/21 at 10:22; Status DC Iohexol (Omnipaque 300 Mg/ml) 50 ml STK-MED ONCE .ROUTE ; Start 10/22/21 at 10:21; Stop 10/22/21 at 10:22; Status DC Cellulose (Surgicel Hemostat 4x8) 1 each STK-MED ONCE .ROUTE ; Start 10/22/21 at 10:21; Stop 10/22/21 at 10:22; Status DC Allergies Allergies: Coded Allergies: No Known Drug Allergies (Unverified , 10/21/21) ROS General: No: Chills, Other (fevers ) PSYCHOLOGICAL ROS: No: Anxiety, Depression Eyes: No Blurry vision, No Double vision HEENT: YES: Heacaches; No: Sore Throat Hematological and Lymphatic: No: Bleeding Problems, Blood Clots Respiratory: No: Cough, Shortness of breath Cardiovascular: No Chest Pain, No Palpitations Gastrointestinal: Yes Other (see hpi) Genitourinary: No Dysuria, No Hematuria Musculoskeletal: No Joint Pain, No Muscle Pain Neurological: No Impaired Coord/balance, No Memory Loss Skin: No Pruritus, No Rash Physical Exam General: Alert, Oriented X3, Cooperative, No acute distress HEENT: Atraumatic, PERRLA Lungs: Clear to auscultation, Normal air movement Heart: Regular rate, Normal S1, Normal S2 Abdomen: Soft, Other (RUQ TTP, mild LUQ ttp ) Extremities: No clubbing, No cyanosis Skin: No rashes, No breakdown Neuro: Normal gait, Normal speech Psych/Mental Status: Mental status NL, Mood NL MUSCULOSKELETAL: No deformity, No swelling Vitals VITALS Vital Signs Date Time Temp Pulse Resp B/P (MAP) Pulse Ox O2 Delivery O2 Flow Rate FiO2 10/22/21 08:00 Room Air 10/22/21 07:00 98.0 53 16 104/55 (71) 97 98.0 Labs Labs Laboratory Tests Test 10/21/21 10:33 10/21/21 10:37 10/21/21 11:09 Urine Collection Type Unknown Urine Color Yellow Urine Clarity Clear Urine pH 7.5 (<5.0-8.0) Urine Specific [place] 1.020 (1.000-1.030) Urine Protein Negative mg/dL (NEG-TRACE) Urine Glucose (UA) Negative mg/dL (NEG) Urine Ketones (Stick) 40 mg/dL (NEG) Urine Blood Negative (NEG) Urine Nitrite Negative (NEG) Urine Bilirubin Negative (NEG) Urine Urobilinogen Dipstick 0.2 mg/dL (0.2 mg/dL) Urine Leukocyte Esterase Negative (NEG) Urine RBC 0 /HPF (0-2) Urine WBC 0 /HPF (0-4) Urine Squamous Epithelial Cells Occ /LPF Urine Bacteria 0 /HPF (0-FEW) Urine Opiates Screen Neg (NEG) Urine Methadone Screen Neg (NEG) Urine Barbiturates Neg (NEG) Urine Phencyclidine Screen Neg (NEG) Urine Amphetamine/Methamphetamine Neg (NEG) Urine Benzodiazepines Screen Neg (NEG) Urine Cocaine Screen Neg (NEG) Urine Cannabinoids Screen Pos (NEG) Urine Ethyl Alcohol Neg (NEG) Bedside Urine HCG, Qualitative Hcg negative (Negative) White Blood Count 10.2 x10^3/uL (4.0-11.0) Red Blood Count 4.43 x10^6/uL (3.50-5.40) Hemoglobin 11.9 g/dL (12.0-15.5) Hematocrit 37.1 % (36.0-47.0) Mean Corpuscular Volume 84 fL (79-100) Mean Corpuscular Hemoglobin 27 pg (25-35) Mean Corpuscular Hemoglobin Concent 32 g/dL (31-37) Red Cell Distribution Width 14.8 % (11.5-14.5) Platelet Count 300 x10^3/uL (140-400) Neutrophils (%) (Auto) 86 % (31-73) Lymphocytes (%) (Auto) 10 % (24-48) Monocytes (%) (Auto) 4 % (0-9) Eosinophils (%) (Auto) 0 % (0-3) Basophils (%) (Auto) 0 % (0-3) Neutrophils # (Auto) 8.8 x10^3/uL (1.8-7.7) Lymphocytes # (Auto) 1.0 x10^3/uL (1.0-4.8) Monocytes # (Auto) 0.4 x10^3/uL (0.0-1.1) Eosinophils # (Auto) 0.0 x10^3/uL (0.0-0.7) Basophils # (Auto) 0.0 x10^3/uL (0.0-0.2) Sodium Level 137 mmol/L (136-145) Potassium Level 3.8 mmol/L (3.5-5.1) Chloride Level 102 mmol/L (98-107) Carbon Dioxide Level 26 mmol/L (21-32) Anion Gap 9 (6-14) Blood Urea Nitrogen 23 mg/dL (7-20) Creatinine 0.5 mg/dL (0.6-1.0) Estimated GFR (Cockcroft-Gault) 139.6 BUN/Creatinine Ratio 46 (6-20) Glucose Level 119 mg/dL (70-99) Calcium Level 8.7 mg/dL (8.5-10.1) Total Bilirubin 0.4 mg/dL (0.2-1.0) Aspartate Amino Transf (AST/SGOT) 36 U/L (15-37) Alanine Aminotransferase (ALT/SGPT) 46 U/L (14-59) Alkaline Phosphatase 81 U/L (46-116) Total Protein 7.3 g/dL (6.4-8.2) Albumin 3.1 g/dL (3.4-5.0) Albumin/Globulin Ratio 0.7 (1.0-1.7) Lipase 93 U/L (73-393) Assessment/Plan Assessment/Plan cholecystitis, plan for lap serina today 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
[2021-10-22] MEDS ORDERED: PROPOFOL 10 MG/ML (20ML) VIAL. IV ONE (14:25)
[2021-10-22] MEDS ORDERED: DEXAMETHASONE SOD PHOS 4 MG/ML VIAL ONE (14:25)
[2021-10-22] MEDS ORDERED: ROCURONIUM 50 MG/5 ML VIAL. ONE (14:25)
[2021-10-22] MEDS ORDERED: ONDANSETRON PF 4 MG/2 ML VIAL. ONE (14:25)
[2021-10-22] MEDS ORDERED: fentaNYL PF VIAL 100 MCG/2 ML VIAL ONE ×2 (14:25→17:34)
[2021-10-22] MEDS ORDERED: MIDAZOLAM HCL/PF 2 MG/2 ML VIAL. ONE (14:25)
[2021-10-22] MEDS ORDERED: FAMOTIDINE 20 MG/2 ML VIAL ONE (14:25)
[2021-10-22] MEDS ORDERED: LIDOCAINE 1% PF 5 ML VIAL. ONE (14:26)
[2021-10-22] MEDS ORDERED: ceFAZolin 2GM PREMIX 2 GM/50 ML BAG IV ONE (15:00)
[2021-10-22] MEDS ORDERED: GLYCOPYRROLATE 1 MG/5 ML VIAL. ONE (16:09)
[2021-10-22] MEDS ORDERED: NEOSTIGMINE METHYLSULFATE 5 MG/5 ML SYRINGE. ONE (16:09)
[2021-10-22] MEDS ORDERED: KETOROLAC 30 MG/ML VIAL. ONE (16:22)
--- NOTE | 2021-10-22 16:32 | RAD ---
Exam: Intraoperative cholangiogram INDICATION: Cholecystectomy TECHNIQUE: Fluoroscopic images submitted for interpretation. Comparisons: CT and ultrasound 10/21/2021 FINDINGS: 2 images were submitted for interpretation. There is cannulization of the cystic duct with contrast filling of the common bile duct central intra hepatic ducts and second portion of the duodenum. No extravasated contrast is seen. Fluoroscopy time: 22.1 seconds IMPRESSION: Fluoroscopic images as described above. Please see procedural note for further details. Electronically signed by: Mary Perry MD (10/22/2021 4:30 PM) BROOK
--- NOTE | 2021-10-22 16:39 | PDOC4 ---
Operative Note Operative Note Operative Note: Preoperative Diagnosis: Acute cholecystitis Postoperative Diagnosis: Same Procedure: Laparoscopic cholecystectomy with intraoperative cholangiogram Surgeons: [employer] Supervisor: HOLLY Adams Jacob Weipen MS 4 Anesthesia: Gen. Estimated Blood Loss: 10 mL Specimen: Gallbladder to pathology Drains: None Complications: None Indications: The patient is a 36-year-old female was admitted with findings consistent with acute cholecystitis. Surgical treatment was offered by means of a laparoscopic cholecystectomy. The risks of surgery were discussed which include bleeding, infection, bile duct injury, bile leak, pain, the potential for additional surgeries or procedures. The patient understands and would like to proceed. Description: The patient was taken to the operating room and laid supine on the operating table. General anesthesia was performed. The abdomen was prepped with ChloraPrep and draped in a standard surgical fashion. A small infraumbilical incision was made with a scalpel. The Veress needle was then inserted and a pneumoperitoneum was then created. A 5 mm trocar was then inserted and the laparoscope was introduced. In the upper midabdomen an 11 mm trocar was inserted and in the right upper quadrant two 2.3 mm mini lap graspers were inserted. The gallbladder was inflamed with significant edema of the wall. The gallbladder was retracted cephalad. The cystic duct was dissected free from surrounding tissues. One clip was placed on the duct near the gallbladder junction. An opening was made in the duct and a cholangiocatheter placed within and secured with a clip. Using contrast dye and fluoroscopy an intraoperative cholangiogram was performed that appeared unremarkable. The clip and catheter were then withdrawn. Three clips were placed on the cystic duct and it was divided. The cystic artery was then identified, dissected free, doubly clipped and divided as well. The gallbladder was then mobilized away from the liver with cautery. The gallbladder was then placed in an endoscopic bag and extracted at the superior trocar site. The fascia there was closed with a 0 PDS sutures and infiltrated with 0.5% marcaine. All blood and irrigation fluid was suctioned and hemostasis was good. The remaining ports were removed and the pneumoperitoneum was relieved. The skin incisions were closed using 4-0 Monocryl suture. Steri-Strips and dressings were then applied. The patient tolerated the procedure well and was sent to the recovery room in stable condition. At the end of the case all counts were correct. TISHA VERMA MD Oct 22, 2021 16:39
[2021-10-22] MEDS ORDERED: oxyCODONE/APAP 5/325 1 TAB TABLET PO PRN (16:45)
[2021-10-22] MEDS: fentaNYL PF VIAL 100 MCG/2 ML VIAL IVP PRN ×2 (17:38→17:46)
[2021-10-22] MEDS ORDERED: fentaNYL PF VIAL 100 MCG/2 ML VIAL IVP PRN (17:45)
[2021-10-22] MEDS ORDERED: IV RINGERS,LACTATED 1000ML 1,000 ML IV SCH (17:45)
[2021-10-22] MEDS ORDERED: HYDROmorphone 2 MG/ML VIAL IVP PRN (17:45)
[2021-10-22] MEDS ORDERED: MORPHINE SULFATE 2 MG/ML INJ. IVP PRN (17:45)
[2021-10-22] MEDS ORDERED: PROCHLORPERAZINE 10 MG/2 ML VIAL. IVP PRN (17:45)
--- NOTE | 2021-10-22 18:33 | NUR ---
1745 LR non administered. Pt had LR running from PACU
[2021-10-23] MEDS: oxyCODONE/APAP 5/325 1 TAB TABLET PO PRN ×3 (00:59→14:43)
[2021-10-23 03:00] VITALS: BP 103/49
[2021-10-23 07:15] VITALS: BP 109/61
[2021-10-23] MEDS ORDERED: OXYC1TAB15 PO (08:40)
[2021-10-23] MEDS ORDERED: SENN1TAB99 PO (08:40)
--- NOTE | 2021-10-23 08:43 | DISCH ---
DISCHARGE INSTRUCTIONS Condition on Discharge Condition on Discharge: Stable Activity After Discharge Activity Instructions for Disc: Activity as tolerated Lifting Instructions after Dis: Do not lift >10 pounds Exercise Instruction after Dis: Walk 15 min, 3 x per day Driving Instructions after Dis: Do not drive today Diet after Discharge Diet after Discharge: Cardiac Follow-Up Follow up with: PCP within 2 weeks of discharge Follow Up With: Surgery within 2 weeks of discharge for postoperative wound check CHAPITO BECKFORD MD Oct 23, 2021 08:43
[2021-10-23] MEDS: SENNOSIDES/DOCUSATE 8.6/50MG TABLET. PO SCH (09:00)
--- NOTE | 2021-10-23 10:16 | NUR ---
SW following. Discussed with RN, discharge order for home with self care. Med Assist following for self pay status.
[2021-10-23 11:09] VITALS: BP 106/64
--- NOTE | 2021-10-23 14:07 | PDOC ---
SURGICAL PROGRESS NOTE DATE: 10/23/21 TIME: 14:06 Subjective sore tolerating clears urinating Vital Signs Vital Signs Date Time Temp Pulse Resp B/P (MAP) Pulse Ox O2 Delivery O2 Flow Rate FiO2 10/23/21 11:09 98.2 46 20 106/64 (78) 97 Room Air 2.0 98.2 I&O Intake and Output 10/23/21 07:00 Intake Total 1300 ml Output Total 285 ml Balance 1015 ml Intake Oral 300 ml IV Total 1000 ml Output Urine Total 275 ml Estimated Blood Loss 10 ml # Voids 4 General: Alert, Cooperative Abdomen: Soft, Other (lap sites intact ) Problem List Problems Medical Problems: (1) Cholecystitis Status: Acute Assessment/Plan can advance diet, it tolerates can dc home Justicifation of Admission Dx: Justifications for Admission: Justification of Admission Dx: Yes Comments: cholecystitis 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
[2021-10-23 15:15] VITALS: BP 110/67
--- NOTE | 2021-10-23 16:41 | NUR ---
Pt. discharged to home, rx sent to pharmacy. Verbalized understanding of discharge instructions.
[2021-10-23 19:30] VITALS: BP 183/93
--- NOTE | 2021-10-28 15:34 | PDOC3 ---
[facility]-Discharge Summary Date of Admission: Date of Admission: Oct 21, 2021 Date of Discharge: Date of Discharge: Oct 23, 2021 Discharge Diagnosis: Discharge Diagnosis: Acute cholecystitis. History of RA Hospital Course: Hospital Course: 36 year old female who presented to the emergency room this morning due to right-sided sharp/cramping abdominal pain which radiaties to the flank area at times. She states yesterday morning she had 1 bout of diarrhea but none since. She rates her pain a 10 out of 10. She has a history of RA which she takes prednisone and vhlb-npq-hqioofm Artrivida. She rates her pain at 10 out of 10. She denies vomiting, constipation, chest pain, shortness of air, fever, cough, urinary symptoms, abnormal vaginal discharge, numbness or tingling, headache, dizziness. In the emergency room CT concerning for cholecystitis. Surgery consulted patient admitted to hospitalist 10/22/2021 No acute events overnight. Patient seen and examined bedside. Pain is well controlled. On-call to the OR for lap serina. Patient's chart, labs, images were reviewed and discussed with RN Taken to OR for laparoscopic cholecystectomy. Tolerated procedure well without any postoperative complications. Ambulating, pain was well controlled, and tolerating diet. The rest of the hospital course was uneventful. Disposition: Disposition/Orders: D/C to Home Activity: Activity: Resume previous activity Diet: Diet: Soft Medications: Home Meds Active Scripts Sennosides/Docusate Sodium (Senna-Docusate Sodium Tablet) 1 Each Tablet, 1 TAB PO DAILY PRN for CONSTIPATION for 20 Days, #20 TAB 0 Refills Prov:CHAPITO BECKFORD MD 10/23/21 Oxycodone/Apap 5-325 (PERCOCET 5-325 MG TABLET ) 1 Each Tablet, 2 TAB PO PRN Q6-8HRS PRN for PAIN for 3 Days, #12 TAB Prov:CHAPITO BECKFORD MD 10/23/21 Scheduled PRN Oxycodone/Apap 5-325 (Percocet 5-325 Mg Tablet ), 2 TAB PO PRN Q6-8HRS PRN for PAIN Sennosides/Docusate Sodium (Senna-Docusate Sodium Tablet), 1 TAB PO DAILY PRN for CONSTIPATION Total Time: Total Time: Total time spent was 32 minutes in preparing scripts, discharge planning with SW and RN, and preparing this discharge summary. Justicifation of Admission Dx: Justifications for Admission: Justification of Admission Dx: Yes CHAPITO BECKFORD MD Oct 28, 2021 15:33
--- NOTE | 2021-10-29 12:09 | PATHOLOGY ---
[facility] Accession Number: [id number] . 01 Material submitted: . gallbladder - GALLBLADDER AND CONTNETS . 01 Clinical history: . CHOLECYSTITIS LAPAROSCOPIC CHOLECYSTECTOMY . 02 Diagnosis: Gallbladder, excision: - Chronic cholecystitis. - Lithiasis. - Negative for malignancy. . Lymph node, pericystic duct region: - Lipogranulomatous inflammation. (MLK/db; 10/26/2021) LBQ 10/26/2021 1714 Local . 02 Electronically signed: . Ghislaine Dillard MD, Pathologist NPI- [id number] . 01 Gross description: . Fixative: Formalin Labeled: Gallbladder and contents Specimen received: Intact gallbladder Dimensions: 9.1 x 2.9 x 2.6 cm Serosa: Mcleod-yao, edematous Lymph node: 1.1 x 0.6 x 0.6 Mucosa: Velvety, light castro Average wall thickness: 0.1 cm Calculi: Present displaying a dark yellow and nodular appearance Abnormalities: The lumen of the gallbladder is filled with viscous bile . Junior Estimator body, fundus, cystic duct margin, and bisected lymph nodes in cassette A1. (CAA; 10/24/2021) QAC/QAC 10/24/2021 0901 Local . 02 Pathologist provided ICD-10: K80.10 . 02 CPT . 805904 Specimen Comment: A courtesy copy of this report has been sent to [phone] Specimen Comment: [id number] Specimen Comment: Report sent to / DR VERMA Performed at: [address], [place], [place] [id number] MD Jose Alberto Luevano MD Phone: [phone] Performed at: [address] [id number] MD Jhoan Dodd MD Phone: [phone]
== END 2021-10-23 16:35 | disposition home or self-care (01) | DRG 419 ==
LOC: ER 08:53 → 4 NORTH 13:27 → ER 15:26 → 4 NORTH 15:26
PROVIDERS: ADMIT Student in an Organized Health Care Education/Training Program; ATTEND Student in an Organized Health Care Education/Training Program
PROC: BF101ZZ Fluoroscopy of Bile Ducts using Low Osmolar Contrast (ICD-10-PCS; 2021-10-22)
PROC: 0FT44ZZ Resection of Gallbladder, Percutaneous Endoscopic Approach (ICD-10-PCS; principal; 2021-10-22 16:30)
DX: K80.00 Calculus of gallbladder with acute cholecystitis without obstruction (principal); Z79.899 Other long term (current) drug therapy
CPT/HCPCS: 36415; 74177; 74300; 76705; 80053; 80307; 81001; 81025; 83690; 85025; 88304; 96361; 96365; 96375; A4213; A4315; A4364; A4657; A4930; A6219; C1887; J0690; J1100; J1885; J2250; J2270; J2405; J2543; J2704; J2710; J3010; J3490; J7030; Q9967; 99285-25; G0378